=== PATIENT | male | born 1980 | race Caucasian/White ===

== ENCOUNTER 2020-11-06 14:19 | Emergency (ER) | payer MEDICAID, OTHER ==
[~2020-11-06] VITALS: Ht 170.2 cm; Wt 70.5 kg
[2020-11-06 14:47] VITALS: BP 141/96
[2020-11-06] MEDS ORDERED: LIDOcaine 1% W/epiNEPHrine 1:200,000 10ml vial IJ ONE (14:50)
[2020-11-06] MEDS ORDERED: CEPH-585 PO (16:40)
== END 2020-11-06 16:30 | disposition home or self-care (01) ==
LOC: ER 14:20
DX: S61.512A Laceration without foreign body of left wrist, initial encounter (principal); Z88.0 Allergy status to penicillin; W26.8XXA Contact with other sharp object(s), not elsewhere classified, initial encounter; Y93.89 Activity, other specified; Y92.89 Other specified places as the place of occurrence of the external cause; Y99.8 Other external cause status
CPT/HCPCS: 12002; 99283

== ENCOUNTER 2024-12-15 13:20 | Inpatient (IN) | payer OTHER ==
[~2024-12-15] VITALS: Ht 170.2 cm; Wt 73.3 kg
--- NOTE | 2024-12-15 13:51 | Physician Documentation ---
History of Present Illness ~ Chief Complaint: Urinary Symptoms Stated Complaint: UTI Time Seen by MD: 13:50 HPI 44-year-old male, history of ileostomy from Trauma, who presents with pyelonephritis and possible urinary obstruction. The patient is a transfer from an outside hospital. He was seen about a week ago at urgent care and diagnosed with pyelonephritis and possible kidney stone. He was treated with Flomax and Bactrim. After 1 week he did not have an improvement in his symptoms and went to an outside emergency department. There he was found to have an ongoing urine infection. CT scans shows hydroureter and hydronephrosis without obvious stone. He was transferred for admission given his failure of outpatient antibiotics and concern for possible need for urology intervention. Currently, he states he is actually feeling a lot better after the symptomatic treatment including Toradol, fluids, and ceftriaxone. He does report some pain in his right flank. No current abdominal pain or nausea. Medication Reconciliation Allergies: Coded Allergies: Penicillins (Unverified Allergy, Unknown, 11/06/20) Miscellaneous Medications Home Med List (No Home Medications), 0 Past Medical History Past Medical History: *GI/HEPATOBILIARY* Past Surgical History: other Alcohol Use: None Drug Use: none Lives with: Spouse Lives In: Home Occupation: employed Review of Systems Gastrointestinal: Reports: abdominal pain; Denies: nausea Genitourinary: Reports: flank pain Physical Exam Vital Signs: Temperature: 98.2, Source: Oral, Heart Rate: 75, Respiratory Rate: 16, BP: 124/69, Pulse Oximetry: 100, Weight: 64.000 Oxygen Flow Rate: 0 Physical Exam General: This is a thin overall well-appearing young man sitting calmly in bed HEENT: Atraumatic, oropharynx is moist Heart: Regular rate and rhythm, normal-appearing peripheral perfusion Lungs: Clear breath sounds bilateral, normal work of breathing, normal oxygen saturation on room air Abdomen: Soft, nondistended, no significant tenderness to deep palpation on the right side. He does have an ileostomy bag in place with good output Back: Mild right CVA tenderness to percussion. Neuro: Alert and oriented Psychiatric: Calm and cooperative with exam Progress Results/Orders Results/Orders Orders - MARIBEL LEHMAN MD Page Hospitalist (12/15/24 14:17) Urinalysis, Cult If Indicated (12/15/24 14:29) Completed Orders - MARIBEL LEHMAN MD Cbc/Diff (12/15/24 14:29) CMP (12/15/24 14:29) Vital Signs 12/15/24 13:33 Temp 98.2 Pulse 75 Resp 16 B/P (MAP) 124/69 Pulse Ox 100 O2 Flow Rate 0 Laboratory Tests Test 12/15/24 14:39 White Blood Count 7.4 Red Blood Count 5.02 Hemoglobin 14.9 Hematocrit 44.0 Mean Corpuscular Volume 87.7 Mean Corpuscular Hemoglobin 29.8 Mean Corpuscular Hemoglobin Concent 33.9 Red Cell Distribution Width 13.3 Platelet Count 354 Mean Platelet Volume 7.3 L Neutrophils (%) (Auto) 76.9 H Lymphocytes (%) (Auto) 8.3 L Monocytes (%) (Auto) 13.0 H Eosinophils (%) (Auto) 1.2 Basophils (%) (Auto) 0.6 Neutrophils # (Auto) 5.7 Lymphocytes # (Auto) 0.6 L Monocytes # (Auto) 1.0 H Eosinophils # (Auto) 0.1 Basophils # (Auto) 0.0 CBC Comment Sodium Level 134 L Potassium Level 4.2 Chloride Level 98 L Carbon Dioxide Level 27.8 Anion Gap 8 Blood Urea Nitrogen 20 H Creatinine 1.24 H Estimated GFR/1.73 m2 63 BUN/Creatinine Ratio 16.1 Glucose Level 93 Calcium Level 8.6 Total Bilirubin 0.9 Aspartate Amino Transf (AST/SGOT) 22 Alanine Aminotransferase (ALT/SGPT) 57 Alkaline Phosphatase 165 H Total Protein 7.0 Albumin 2.7 L Globulin 4.3 Albumin/Globulin Ratio 0.6 L Chemistry Comments Consults/PCP Consults/PCP : Additional Comment Consult: Prior to accepting the transfer, I did speak to the on-call urologist who agreed to evaluate the patient for intervention when he arrives. Consult: I spoke to the internal medicine service, for admission in the hospital Medical Decision Making Additional info obtained from: old records Findings Reviewed records from the outside hospital including his urinalysis, laboratory testing, and CT scan Additional Comment The patient presents with pyelonephritis and possible ureteral obstruction. Here in the ED, he was currently nontoxic appearing. He already received antibiotics, fluids and pain medications. I reviewed his outside records. He will be admitted for ongoing treatment and possible Urology intervention Departure Impression: Primary Impression: Obstruction of urinary tract Additional Impression: Acute pyelonephritis Referrals: NO PRIMARY CARE PROVIDER (PCP) Prescriptions Home Med List (No Home Medications) Each 0 for 1 Day, #1 PT DOES NO TAKE ANY HOME MEDICATIONS Prov: DOV VARELA MD 12/15/24 Signature Scribe Signature: na Attestation: MARIBEL Reese MD December 15, 2024 13:51
[2024-12-15 14:52] LABS: BASOPHILS % (AUTO) 0.6 % (0-1); EOSINOPHILS # (AUTO) 0.1 X10'3 (0-0.9); EOSINOPHILS % (AUTO) 1.2 % (0-6); HEMOGLOBIN 14.9 g/dl (14.0-17.9); LYMPHOCYTES # (AUTO) 0.6 X10'3 (1.1-4.8); LYMPHOCYTES % (AUTO) 8.3 % (21-51); MEAN CORPUSCULAR HEMOGLOBIN 29.8 PG (27.0-31.0); MEAN CORPUSCULAR HGB CONC 33.9 g/dL (33.0-36.5); MEAN CORPUSCULAR VOLUME 87.7 FL (78-98); MEAN PLATELET VOLUME 7.3 FL (7.4-10.4); NEUTROPHILS # (AUTO) 5.7 X10'3 (1.8-7.7); NEUTROPHILS % (AUTO) 76.9 % (42-75); PLATELET COUNT 354 X10'3 (140-440); RED BLOOD COUNT 5.02 X10'6 (4.70-6.10); RED CELL DISTRIBUTION WIDTH 13.3 % (11.5-14.5); WHITE BLOOD COUNT 7.4 X10'3 (4.5-11.0)
[2024-12-15] MEDS ORDERED: HYDROcodone/acetaminophen 5mg/325mg tablet PO PRN (15:05)
[2024-12-15] MEDS ORDERED: HYDROmorphone inj. 0.5 MG/0.5 ML DISP.SYRIN IV PRN (15:05)
--- NOTE | 2024-12-15 15:15 | HISTORY AND PHYSICAL-Residence ---
History & Physical Providers to CC Resident Creating Document: FRAN TEJADA RES ~ History of Present Illness Reason for Admit\Complaint: Kidney pain, kidney stone History of Present Illness This is a 44-year-old man transferred from [facility] for further evaluation and management pyelonephritis and kidney stone. Patient was presented today to the transferring facility with persistent progressively worsening right flank pain associated with hematuria and burning with urination. Initially, patient developed the symptoms one week ago; he had an abrupt onset of acute right flank pain with some mild radiation to his lower abdomen. He sought care at an Urgent Care Clinic in [place] where he was diagnosed with a kidney stone and an associated bladder infection, was prescribed Flomax and Bactrim with minimal relief. He denies any fever, chills, nausea, or vomiting. A CT scan performed of the transferring facility today revealed multiple punctuate, nonobstructing right renal calculi, the largest measuring up to 5 mm. There is associated moderate right hydro nephrosis involving the upper calices and mild right hydroureter. Lab results shows hyponatremia, acute kidney injury, as well as liver function tests were notable for a total bilirubin of 1.7 and mildly elevated AST is and ALT. He does have a functional ileostomy at this time as a result of colectomy (15 years ago) due to Crohn's disease and states that the ileostomy is working normally. The output from the ileostomy is otherwise unremarkable. Allergies: Coded Allergies: Penicillins (Unverified Allergy, Unknown, 11/06/20) Home Medications Home Medications Active Past Medical History Past Medical History Crohn disease, status post colectomy Past Surgical History Surgical History Comment Total colectomy Past Social History Social History Comment Patient lives with his family, denies smoking cigarettes, consuming alcohol, or using recreational drugs. Alcohol Use: None Drug Use: None Lives with: Spouse Lives In: Home Occupation: employed ROS All Other Systems: Reviewed and Negative ROS As stated above in the HPI, otherwise all systems are reviewed and negative. Gastrointestinal: Reports: abdominal pain; Denies: nausea Genitourinary: Reports: flank pain Exam Vitals: Vital Signs Date Time Temp Pulse Resp B/P (MAP) Pulse Ox O2 Delivery O2 Flow Rate FiO2 12/15/ 13:33 98.2 75 16 124/69 100 0 General: Awake and Alert, no acute distress. HEENT: Conjunctiva pink, Sclera clear, Mucus Membranes moist. Neck: Supple without masses and tenderness. Resp: Unlabored. Lungs clear to auscultation bilaterally. Heart: Regular Rate and rhythm, normal S1 and S2 without murmur, rub or gallop. Abdomen: Soft and non tender no organomegaly. Ileostomy in the right abdomen adjust into the umbilicus. There is some tenderness the right lower quadrant without rigidity, rebound, or guard. Suprapubic tenderness also noted. Extremities: No cyanosis,clubbing or edema. Skin: Warm and Dry. Diagnostic Data Last Recorded Lab Results: 12/15/24 1439 Advance Care Planning Advanced Care plannin - 30 Minutes Additional Plan Assessment and plan: This is a 44-year-old man transferred from [facility] for further evaluation and management pyelonephritis and kidney stone. Patient was presented today to the transferring facility with persistent progressively worsening right flank pain associated with hematuria and burning with urination. Initially, patient developed the symptoms one week ago; he had an abrupt onset of acute right flank pain with some mild radiation to his lower abdomen. He sought care at an Urgent Care Clinic in [place] where he was diagnosed with a kidney stone and an associated bladder infection, was prescribed Flomax and Bactrim with minimal relief. He denies any fever, chills, nausea, or vomiting. Right nonobstructing nephrolithiasis Mild hydroureter, moderate hydronephrosis Most likely acute pyelonephritis Pain management; with [place] and Dilaudid IV hydration; NS 100 mL/hours Antibiotics; Rocephin 1 g IV daily initiated Monitor renal function and repeat imaging if clinically worsening We will repeat CBC CMP, and UA Urology/Dr. Kelley was consulted, will see the patient. Keep him NPO Acute kidney injury: Likely vasomotor nephropathy BUN/creatinine 17/1.2 IV hydration Monitor BMP History of Crohn's disease: S/P colectomy with ileostomy bag DVT prophylaxis: Able to walk Code status: Full code Fran Tejada Internal Medicine Resident Date of Service: December 15, 2024 Billing Provider: ERMA LANCASTER MD Common Visit Codes: 64426-[id number] INP/OBS CARE (HIGH) Secondary Visit Codes: 73250-[id number] CARE PLAN 30 MINUTES FRAN TEJADA, RES December 15, 2024 15:15 ERMA LANCASTER MD December 16, 2024 06:50
[2024-12-15 15:17] LABS: ALANINE AMINOTRANSFERASE 57 U/L (12-78); ALBUMIN 2.7 G/DL (3.4-5.0); ALBUMIN/GLOBULIN RATIO 0.6 (1.1-1.5); ALKALINE PHOSPHATASE 165 IU/L (46-116); ANION GAP 8 (8-16); ASPARTATE AMINO TRANSFERASE 22 U/L (10-37); BLOOD UREA NITROGEN 20 MG/DL (7-18); BUN/CREATININE RATIO 16.1 (10.0-20.0); CALCIUM 8.6 MG/DL (8.5-10.1); CHLORIDE 98 MMOL/L (99-107); CREATININE 1.24 MG/DL (0.60-1.10); GLUCOSE 93 MG/DL (70-104); POTASSIUM 4.2 MMOL/L (3.5-5.1); SODIUM 134 MMOL/L (135-145); TOTAL CARBON DIOXIDE 27.8 MMOL/L (24-32); eCRCL 67 ML/MIN; eGFR 63 ML/MIN
[2024-12-15 15:20] LABS: BILIRUBIN,TOTAL 0.9 MG/DL (0.1-1.0)
[2024-12-15] MEDS ORDERED: magnesium sulf-water 2g/50mL 50 ML IV PRN (15:25)
[2024-12-15] MEDS ORDERED: acetaminophen 325mg tablet PO PRN (15:25)
[2024-12-15] MEDS ORDERED: magnesium sulf-water 4G/100mL 100 ML IV PRN (15:25)
[2024-12-15] MEDS ORDERED: ondansetron/PF 4mg/2ml inj IV PRN (15:25)
[2024-12-15] MEDS ORDERED: potassium Cl 20 mEq SR tablet PO PRN ×2 (15:25)
[2024-12-15] MEDS ORDERED: potassium Cl 40MEQ/1/2NS 520ml 520 ML IV PRN (15:25)
[2024-12-15] MEDS ORDERED: magnesium Cl slow-release 64mg tablet PO PRN (15:25)
[2024-12-15] MEDS ORDERED: NO HOME MEDS (16:06)
[2024-12-15] MEDS: normal saline 1000ml 1,000 ML IV SCH (17:30)
[2024-12-15] MEDS: CefTRIAXone/D5W-Rocephin 1gm 50 ML IV SCH (17:45)
[2024-12-15 18:00] VITALS: BP_SYST 125; BP_SYST 156; BP_DIAS 71; BP_DIAS 72; PULSE 92; PULSE 97; RESP 16; RESP 18; TEMP 98.1; TEMP 98.5; O2SAT 96; O2SAT 98
[2024-12-15 20:00] VITALS: RESP 17; O2SAT 97
[2024-12-15] MEDS: K and/or MAG REPLACEMENT MC SCH (20:00)
[2024-12-15 22:00] VITALS: BP 118/68; PULSE 104; RESP 17; TEMP 97.8; O2SAT 97
[2024-12-16 06:00] VITALS: BP 138/75; PULSE 77; RESP 18; TEMP 97.9; O2SAT 98
[2024-12-16 10:00] VITALS: BP 119/66; PULSE 101; RESP 14; TEMP 97.9; O2SAT 98
--- NOTE | 2024-12-16 10:42 | CONSULTATION ---
DATE OF CONSULTATION: 12/15/2024 DICTATING PHYSICIAN: Javi Kelley MD HISTORY OF PRESENT ILLNESS: A 44-year-old male admitted in transfer from [facility] with possible obstructing pyelonephritis. The patient has been having some mild flank pain and burning with urination for about seven days. He was given Bactrim about 10 days ago, but only given a 3-day supply and was told to represent if his symptoms had not corrected. A CT scan performed today suggested at least partial hydronephrosis of that kidney with stones and he was transferred without me reviewing the films. Of note, the patient has Crohn's disease and an ileostomy for the last 15 years. On further questioning, the patient feels like he saw a small stone-like structure in the toilet, which he passed yesterday, which he has never passed before, compatible with possible recently passed ureteral calculus. PAST SURGICAL HISTORY: Ileostomy and orthopedic issues. PAST MEDICAL HISTORY: Crohn's disease. ALLERGIES: PENICILLIN. MEDICATIONS: Flomax. SOCIAL HISTORY: Noncontributory. REVIEW OF SYSTEMS: A 10-point review of systems is negative except for HPI. PHYSICAL EXAMINATION: VITAL SIGNS: Blood pressure is 142/98. Heart rate is 100. Respirations 18 and temperature is 36.8. GENERAL: He is in no acute distress. LABORATORY DATA: White count is 7,400, hematocrit is 44%, BUN and creatinine are 20 and 1.24. Urinalysis at the outside institution reveals 30 white cells and 30 red cells per high-powered field. IMAGING: CT scan from the outside institution is reviewed in detail. It shows segmental caliectasis of the upper pole with some small punctate stones rolling around in the upper pole of the kidney, which are all nonobstructing. There is also a mild hydroureter consistent with a possible recently passed stone. ASSESSMENT: Mild subsegmental right hydronephrosis and pyuria without fever. Differential diagnosis includes simple UTI versus recently passed ureteral calculus versus mild pyelonephritis. The patient is not clinically toxic. No indication for ureteral stenting. PLAN: Recommend medical management only to consist of IV antibiotics based on culture results if possible. The patient advised to increase fluid intake for stone prevention in the future, especially in view of his ileostomy with chronic tendency to diarrhea. Javi Kelley MD TID: [id number] RECEIPT: [id number] PF/CARLOS
[2024-12-16 12:32] LABS: BILIRUBIN,URINE NEGATIVE (Neg); CLARITY,URINE CLEAR (Clear); COLOR,URINE YELLOW (Yellow); GLUCOSE, URINE 100 mg/dl (Neg); KETONES,URINE NEGATIVE (Neg); LEUKOCYTE ESTERASE ,URINE NEGATIVE (Neg); NITRITES, URINE NEGATIVE (Neg); OCCULT BLOOD,URINE TRACE-INTACT (Neg); PROTEIN,URINE NEGATIVE (Neg); UROBILINOGEN,URINE 0.2 E.U/dL (0.2-1.0)
[2024-12-16 12:33] LABS: UA COLLECTION TYPE NON-SPECIFIED
[2024-12-16 12:42] LABS: BACTERIA,URINE NONE SEEN /HPF (Neg); MUCUS STRANDS NONE SEEN /LPF (Neg); SQUAMOUS EPITHELIAL CELL,UR FEW /LPF (FEW); WBC,URINE 0-4 /HPF (0-4)
[2024-12-16 12:55] LABS: URINE AMPHETAMINE SCREEN NEGATIVE (Neg); URINE BARBITUATE SCREEN NEGATIVE (Neg); URINE BENZODIAZEPINES SCREEN NEGATIVE (Neg); URINE CANNABINOID SCREEN NEGATIVE (Neg); URINE COCAINE SCREEN NEGATIVE (Neg); URINE METHADONE SCREEN NEGATIVE (Neg); URINE OPIATE SCREEN NEGATIVE (Neg); URINE PHENCYCLIDINE SCREEN NEGATIVE (Neg)
--- NOTE | 2024-12-16 14:37 | PROGRESS NOTE- Residence ---
Progress Note - Resident Providers to CC Resident Creating Document: FRAN TEJADA RES ~ Antibiotic Timeout Antibiotic Ordered?: Yes Subjective Patient was seen and examined at bedside. He was happy, his right flank pain subsided, urine is clear; he showed me the bottle. Objective Vital Signs Date Time Temp Pulse Resp B/P (MAP) Pulse Ox O2 Delivery O2 Flow Rate FiO2 12/16/24 10:00 97.9 101 14 119/66 (83) 98 Room Air 12/16/24 08:00 0.0 General: Awake and Alert, no acute distress. HEENT: Conjunctiva pink, Sclera clear, Mucus Membranes moist. Neck: Supple without masses and tenderness. Resp: Unlabored. Lungs clear to auscultation bilaterally. Heart: Regular Rate and rhythm, normal S1 and S2 without murmur, rub or gallop. Abdomen: Soft and non tender no organomegaly. Ileostomy in the right abdomen adjust into the umbilicus. There is some tenderness the right lower quadrant without rigidity, rebound, or guard. Suprapubic tenderness also noted. Extremities: No cyanosis,clubbing or edema. Skin: Warm and Dry. Result Diagram: 12/15/24 1439 12/15/24 1439 Advance Care Planning Advanced Care plannin - 30 Minutes Assessment Assessment This is a 44-year-old man transferred from [facility] for further evaluation and management pyelonephritis and kidney stone. Patient was presented today to the transferring facility with persistent progressively worsening right flank pain associated with hematuria and burning with urination. Initially, patient developed the symptoms one week ago; he had an abrupt onset of acute right flank pain with some mild radiation to his lower abdomen. He sought care at an Urgent Care Clinic in [place] where he was diagnosed with a kidney stone and an associated bladder infection, was prescribed Flomax and Bactrim with minimal relief. Plan Plan Right nonobstructing nephrolithiasis Mild hydroureter, moderate hydronephrosis Most likely acute pyelonephritis Pain management; with [place] and Dilaudid Continue IV hydration; NS 100 mL/hours Continue Rocephin 1 g IV daily initiated Dr[address] Kelley evaluated the patient, no need for urological intervention UTox negative Acute kidney injury: Postrenal/obstructive nephropathy Continue IV hydration Monitor BMP History of Crohn's disease: S/P colectomy with ileostomy bag DVT prophylaxis: Able to walk Code status: Full code Fran Tejada Internal Medicine Resident Date of Service: December 16, 2024 Billing Provider: DOV VARELA MD,FRAN, RES December 16, 2024 14:37
[2024-12-16 18:00] VITALS: BP 133/84; PULSE 74; RESP 16; TEMP 97.8; O2SAT 99
[2024-12-16 22:00] VITALS: BP 139/75; PULSE 89; RESP 19; TEMP 98.6; O2SAT 98
[2024-12-17 00:20] VITALS: RESP 16; O2SAT 99
[2024-12-17 06:00] VITALS: BP 134/81; PULSE 66; RESP 18; TEMP 97.5; O2SAT 98
[2024-12-17 06:40] LABS: ALANINE AMINOTRANSFERASE 53 U/L (12-78); ALBUMIN 2.5 G/DL (3.4-5.0); ALBUMIN/GLOBULIN RATIO 0.6 (1.1-1.5); ALKALINE PHOSPHATASE 170 IU/L (46-116); ANION GAP 10 (8-16); ASPARTATE AMINO TRANSFERASE 21 U/L (10-37); BILIRUBIN,TOTAL 0.4 MG/DL (0.1-1.0); BLOOD UREA NITROGEN 16 MG/DL (7-18); BUN/CREATININE RATIO 18.8 (10.0-20.0); CALCIUM 8.7 MG/DL (8.5-10.1); CHLORIDE 104 MMOL/L (99-107); CREATININE 0.85 MG/DL (0.60-1.10); GLUCOSE 123 MG/DL (70-104); POTASSIUM 3.9 MMOL/L (3.5-5.1); PRO BRAIN NATRIURETIC PEPTIDE 127 PG/ML (0-125); SODIUM 137 MMOL/L (135-145); TOTAL CARBON DIOXIDE 23.5 MMOL/L (24-32); TOTAL PROTEIN 6.8 G/DL (6.4-8.2); eCRCL 102 ML/MIN; eGFR > 90 ML/MIN
[2024-12-17] MEDS ORDERED: LACT1CAP26 PO (09:01)
[2024-12-17] MEDS ORDERED: CEFD300C3 PO (09:01)
[2024-12-17] MEDS ORDERED: ACET-1008 PO ×2 (09:01)
[2024-12-17] MEDS ORDERED: ACET650T58 PO (09:03)
--- NOTE | 2024-12-17 11:36 | DISCHARGE SUMMARY-Residence ---
Discharge Summary Providers to CC Resident Creating Document: FRAN CABRERA, RES ~ Discharge Summary Admission Diagnosis: Pyelonephritis Hospital Course DATE OF ADMISSION: DATE OF DISCHARGE: Discharge Diagnosis\Comment: Right nonobstructing nephrolithiasis Mild hydroureter, moderate hydronephrosis Acute pyelonephritis Acute kidney injury - Resolved History of Crohn's disease: S/P colectomy with ileostomy bag Operations\Procedures: None Consultants: Dr. Kelley Complications: none Condition on DC: Stable for transfer New Medications: Acetaminophen (Acetaminophen 8 Hour) 650 Mg Tablet.sa 1 TAB PO Q8H for 7 Days, #21 TAB Cefdinir (Cefdinir) 300 Mg Capsule 1 CAP PO Q12H for 7 Days, #14 CAP 0 Refills Lactobacillus Rhamnosus (Culturelle) 10 Billion Cell Capsule 1 CAP PO DAILY for 30 Days, #30 CAP 0 Refills Discharge Summary: History of present illness: This is a 44-year-old man transferred from [facility] for further evaluation and management pyelonephritis and kidney stone. Patient was presented today to the transferring facility with persistent progressively worsening right flank pain associated with hematuria and burning with urination. Initially, patient developed the symptoms one week ago; he had an abrupt onset of acute right flank pain with some mild radiation to his lower abdomen. He sought care at an Urgent Care Clinic in [place] where he was diagnosed with a kidney stone and an associated bladder infection, was prescribed Flomax and Bactrim with minimal relief. He denies any fever, chills, nausea, or vomiting. He does have a functional ileostomy at this time as a result of colectomy (15 years ago) due to Crohn's disease and states that the ileostomy is working normally. The output from the ileostomy is otherwise unremarkable. Hospital course: The patient presented with right-sided flank pain, fever, dysuria, and brody turia. CT scan at the transferring facility revealed a right nonobstructive nephrolithiasis, mild right hydroureter, and moderate right hydronephrosis, suggestive of acute pyelonephritis. UA was suggestive of UTI. He also had and associated acute kidney injury. He was treated with IV hydration, pain control, and empiric IV antibiotics i.e. Rocephin 1 g daily. On-call urologist; Dr. Kelley evaluated the patient and did not recommend any urgent urological intervention. Discharge course: The patient's kidney function improved with IV fluid, and symptoms significantly improved. No complication occurred during hospitalization. He was discharged with the following instructions: Take all your medications exactly as directed until finished, even if you start feeling better. Take Tylenol as needed for discomfort. Drink plenty of fluids (at least 2-3 liters) of water per day to help flush the urinary tract. Follow up with your primary care provider in [address] Roblero evaluated you while you were hospitalized, follow up with him in his clinic. Address: [facility] [place] [address] Discharge medications: See above Discharge physical exam: Vital Signs Date Time Temp Pulse Resp B/P (MAP) Pulse Ox O2 Delivery O2 Flow Rate FiO2 12/17/24 08:00 Room Air 0.0 12/17/24 06:00 97.5 66 18 134/81 (98) 98 General: Awake and Alert, no acute distress. HEENT: Conjunctiva pink, Sclera clear, Mucus Membranes moist. Neck: Supple without masses and tenderness. Resp: Unlabored. Lungs clear to auscultation bilaterally. Heart: Regular Rate and rhythm, normal S1 and S2 without murmur, rub or gallop. Abdomen: Soft and non tender no organomegaly. Ileostomy in the right abdomen adjacent the umbilicus. Extremities: No cyanosis,clubbing or edema. *Problems/Diagnosis: (1) Acute pyelonephritis Status: Acute Total Time Spent on D/C: Up to 30 Minutes Date of Service: December 17, 2024 Billing Provider: ODV VARELA MD, SHAMS, RES December 17, 2024 11:33
== END 2024-12-17 09:40 | disposition home or self-care (01) | DRG 690 ==
LOC: ER 13:21 → ED HOLD 14:51 → ORTHO 4S 17:55
PROVIDERS: ADMIT Family Medicine; ATTEND Family Medicine
DX: N13.6 Pyonephrosis (principal); K50.90 Crohn's disease, unspecified, without complications; N17.9 Acute kidney failure, unspecified; Z93.2 Ileostomy status; Z90.49 Acquired absence of other specified parts of digestive tract; Z88.0 Allergy status to penicillin
CPT/HCPCS: 36415; 80053; 80305; 81001; 83880; 83930; 83935; 84145; 84300; 85025; 87081; 99285; A6222; G0378; J0696; J7030